=== PATIENT | male | born 1965 | race African-American/Black ===

== ENCOUNTER 2018-05-31 14:29 | Emergency (ER) | payer MEDICAID ==
[~2018-05-31] VITALS: Ht 190.5 cm; Wt 129.3 kg
[2018-05-31 14:31] VITALS: Ht 190.5 cm; Wt 129.3 kg
[2018-05-31] MEDS ORDERED: COUMADIN7.5 MG PO (14:34)
[2018-05-31] MEDS ORDERED: LOVENOX150 MG/ML SQ (14:36)
[2018-05-31] MEDS ORDERED: APAP325 MG PO (14:36)
[2018-05-31] MEDS ORDERED: HYDROCODON-ACET15 ML PO (14:37)
[2018-05-31 15:23] LABS: BASOPHILS 0.3 % (0-2); HEMATOCRIT 32.4 % (42.0-54.0); HEMOGLOBIN 10.6 g/dL (13.5-17.5); IMMATURE GRANULOCYTES 0.3 % (0-5); LYMPHOCYTES 12.1 % (15-50); MCH 29.6 pg (26.0-34.0); MCHC 32.7 g/dL (31.0-37.0); MCV 90.5 fL (80.0-100.0); MEAN PLATELET VOLUME 9.4 fL (7.4-10.4); MONOCYTES 12.3 % (2-11); PLATELET COUNT 239 10x3/uL (130-400); RBC 3.58 10x6/uL (4.20-6.10)
[2018-05-31 15:41] LABS: ALBUMIN 3.1 g/dL (3.4-5.0); ALKALINE PHOSPHATASE 54 U/L (46-116); ALT (SGPT) 14 U/L (10-68); BILIRUBIN - TOTAL 0.75 mg/dL (0.2-1.3); CALC OSMOLALITY 268 mosm/kg (275-300); CARBON DIOXIDE 30.1 mmol/L (21.0-32.0); CHLORIDE - SERUM 97 mmol/L (98-107); GLUCOSE 112 mg/dL (74-106); POTASSIUM - SERUM 4.4 mmol/L (3.5-5.1); PROTEIN - SERUM 8.2 g/dL (6.4-8.2); SODIUM 134 mmol/L (136-145); UREA NITROGEN 12 mg/dL (7-18); eGFR NON AFRICAN AMERICAN 83 mL/min (90-120)
[2018-05-31 16:18] LABS: INR 1.46 (0.85-1.17)
[2018-05-31 16:21] LABS: APTT 38.8 SECONDS (22.8-39.4)
[2018-05-31] MEDS ORDERED: NORCO 7.5/325 T1 TA1 PO (16:42)
[2018-05-31 17:03] VITALS: BP 123/70
[2018-06-22 02:51] VITALS: Ht 190.5 cm; Wt 129.3 kg
== END 2018-05-31 17:05 | disposition home or self-care (01) ==
LOC: D.ER 14:29
PROVIDERS: Family Medicine
DX: I82.402 Acute embolism and thrombosis of unspecified deep veins of left lower extremity (principal); Z79.01 Long term (current) use of anticoagulants; R22.42 Localized swelling, mass and lump, left lower limb

== ENCOUNTER 2018-06-21 17:01 | Observation (INO) | payer MEDICAID ==
[~2018-06-21] VITALS: Ht 190.5 cm; Wt 120.5 kg
--- NOTE | ~2018-06-21 | HP ---
PATIENT: MARYJO GARCIA MEDICAL RECORD: [id number] ACCOUNT: [id number] LOCATION:D.MS [id number] : 61 ADMISSION DATE: 06/21/18 HISTORY AND PHYSICAL EXAMINATION DATE OF ADMISSION: 06/21/2018. CHIEF COMPLAINT: Pain and swelling in the left leg. HISTORY OF PRESENT ILLNESS: This is a 52-year-old -Spanish male who was admitted at [facility] from 05/28/2018 through 05/30/2018 with same symptoms. He was diagnosed with a left lower extremity DVT then. He had been on a road trip to [place] and 2 weeks later was in the hospital with his blood clot. There was no history of cancers. He states he had some sort of blood clot years ago, but I do not think he was ever on Coumadin for that. His workup at [facility] showed a normal protein C, protein S, antithrombin III, homocysteine, prothrombin gene analysis, factor V Leiden, and cardiolipin. When I saw him initially in my office earlier this month his INR was over 4. He was on 7.5 mg of Coumadin every day. I lowered the dose. He came back in last week and his INR was down to 1.6 to 1.7 range. I increased his Coumadin. It was at 1.8 yesterday and then he came to the hospital last night. The venous Doppler ultrasound does show extensive left lower extremity deep vein thrombosis. There is no comparison film as the other one was done at [facility]. He is admitted. PAST MEDICAL HISTORY: He has had elevated blood pressure in the past. PAST SURGICAL HISTORY: None. SOCIAL HISTORY: He is . He is a self-employed electrician telephone. DRUG ALLERGIES: None known. HOME MEDICATIONS: Hydrocodone 7.5/325 p.r.n. pain, warfarin 7.5 mg alternating with 5 mg. FAMILY HISTORY: Father with hypertension and arthritis. Mother with hypertension. HABITS: No tobacco, alcohol or drugs. REVIEW OF SYSTEMS: GENERAL: No major weight changes. HEENT: No particular sinus or allergy problems. RESPIRATORY: No shortness of breath, cough. No COPD or asthma. CARDIAC: No history of chest pain, palpitations or heart disease. GASTROINTESTINAL: No diarrhea, constipation or reflux. GENITOURINARY: No significant problems there. MUSCULOSKELETAL: Has left leg pain. NEUROLOGIC: No headaches or seizures. PSYCHIATRIC: Denies depression or melancholia. PHYSICAL EXAMINATION: VITAL SIGNS: Temperature 98.8, pulse 94, respirations 18, blood pressure 132/75, O2 sat 98%. HISTORY AND PHYSICAL [id number] MARYJO GARCIA GENERAL: He is awake and alert, in no acute distress, but complaining of pain in the left lower extremity. HEART: Regular rate and rhythm. LUNGS: Clear. ABDOMEN: Soft. EXTREMITIES: He has tenderness to palpation in the left thigh, which he had on exam with me about a week ago in my office. He has generalized swelling in the left leg. LABORATORY DATA: CBC with a white count of 8800, hemoglobin 9.0, hematocrit 28.0, platelets are little high at 442,000. D-dimer is elevated at 4.07. Basic metabolic panel is fine. Liver enzymes were fine. Total protein 9.0. INR 1.68 here. The ultrasound of the left lower extremity shows extensive DVT. ASSESSMENT: DVT, on Coumadin, subtherapeutic. PLAN: He is given Lovenox. We will check MTHFR and PSA. We will probably swab to Eliquis. Other tests or procedures as warranted. TRANSINT:[id number] Voice Confirmation ID: [id number] DOCUMENT ID: [id number] OBDULIO ADKINS MD at 0900 CC: [id number] DICTATION DATE: 06/22/18914 MUSIC THEORY PROFESSOR: 06/22/18 1109 ADM IN [facility] [address] [place] [address]
[~2018-06-21 17:01] MED LIST: APAP325 MG PO; COUMADIN7.5 MG PO; HYDROCODON-ACET15 ML PO; LOVENOX150 MG/ML SQ; NORCO 7.5/325 T1 TA1 PO
[2018-06-21 18:29] LABS: BASOPHILS 0.1 % (0-2); EOSINOPHILS 3.2 % (0-7); IMMATURE GRANULOCYTES 0.3 % (0-5); LYMPHOCYTES 12.5 % (15-50); MCH 28.2 pg (26.0-34.0); MCHC 32.1 g/dL (31.0-37.0); MCV 87.8 fL (80.0-100.0); MONOCYTES 10.3 % (2-11); NEUTROPHILS 73.6 % (40-80); RBC 3.19 10x6/uL (4.20-6.10); RDW 13.4 % (11.5-14.5); WBC 8.8 10x3/uL (4.8-10.8)
[2018-06-21 18:30] LABS: PLATELET COUNT 442 10x3/uL (130-400)
[2018-06-21 18:57] LABS: ALBUMIN 2.8 g/dL (3.4-5.0); ALKALINE PHOSPHATASE 56 U/L (46-116); ALT (SGPT) 19 U/L (10-68); BILIRUBIN - TOTAL 0.45 mg/dL (0.2-1.3); CALC OSMOLALITY 267 mosm/kg (275-300); CALCIUM 8.8 mg/dL (8.5-10.1); CARBON DIOXIDE 29.2 mmol/L (21.0-32.0); CHLORIDE - SERUM 97 mmol/L (98-107); GLUCOSE 109 mg/dL (74-106); POTASSIUM - SERUM 4.3 mmol/L (3.5-5.1); SODIUM 134 mmol/L (136-145); UREA NITROGEN 11 mg/dL (7-18); eGFR NON AFRICAN AMERICAN 83 mL/min (90-120)
[2018-06-21 19:03] LABS: PRO BNP 45 pg/mL (0-125)
[2018-06-21 21:07] LABS: INR 1.68 (0.85-1.17); PROTIME 19.3 SECONDS (11.6-15.0)
[2018-06-22] MEDS ORDERED: ULTRAM50 MG PO (00:29)
[2018-06-22 02:51] VITALS: Ht 190.5 cm; Wt 120.5 kg
[2018-06-22 12:43] VITALS: BP 131/80
[2018-06-22 20:36] VITALS: BP 154/83
[2018-06-23 01:08] VITALS: BP 110/70
[2018-06-23 04:56] VITALS: BP 126/68
[2018-06-23 08:46] VITALS: BP 128/80
[2018-06-23] MEDS ORDERED: ELIQUIS5 MG PO (17:52)
[2018-06-23] MEDS ORDERED: HYDROCODONE-APA1 TAB PO (18:00)
== END 2018-06-23 20:10 | disposition home or self-care (01) ==
LOC: D.ER 17:01 → D.EDHOLD 21:34 → OBSVTIME 21:34 → D.MS 21:34
PROVIDERS: Emergency Medicine; Family Medicine
DX: I82.402 Acute embolism and thrombosis of unspecified deep veins of left lower extremity (principal); D64.9 Anemia, unspecified; M79.605 Pain in left leg; M79.89 Other specified soft tissue disorders

== ENCOUNTER → 2019-02-02 09:55 | Outpatient (CLI) | payer MEDICAID ==
[2018-06-22 02:51] VITALS: BMI 33.1
[~2019-02-02 09:55] MED LIST changes: +ELIQUIS5 MG PO; +HYDROCODONE-APA1 TAB PO; +ULTRAM50 MG PO
== END | disposition home or self-care (01) ==
LOC: D.US 09:55
PROVIDERS: ATTEND Family Medicine
DX: R60.0 Localized edema (principal); Z86.718 Personal history of other venous thrombosis and embolism

== ENCOUNTER 2019-03-15 05:58 | Outpatient (CLI) | payer MEDICAID ==
[~2019-03-15] VITALS: Ht 190.5 cm; Wt 120.5 kg
--- NOTE | ~2019-03-15 | HEMODYNAMI ---
PATIENT:MARYJO GARCIA MEDICAL RECORD: [id number] : 61 LOCATION:[facility]# [id number] ADMISSION DATE: 03/15/19 Generatedon:03/15/201911:04 Patient name: MARYJO GARCIA Patient #: [id number] SSN: DO B: 1965 Date of study: 03/15/2019 Page: Of Hemodynamic Procedure Report Patient Data Patient Demographics Procedure consent was obtained First Name: MARYJO Gender: Male Last Name: RADHA : 1965 Patient #: [id number] Age: 53 year(s) Race: Black Additional ID: [id number] Contact details [address]: [address] [place] [address] DRIVE State: [place] City: [place] Zip code: [address] Past Medical History Allergies: No known allergies Admission Admission Data Admission Date: 03/15/2019 Admission Time: 5:58 Procedure Procedure Types Cath Procedure Peripheral Cath Diagnostic Procedure Venography Procedure Description Procedure Date Procedure Date: 03/15/2019 Procedure Start Time: 10:07 Procedure Staff Name Function Edwardo Granados RT Monitor Federico Thornton MD Performing Physician Pina Urrutia RN Nurse MICHAEL ALAS RT Scrub Procedure Data Cath Procedure Fluoroscopy Diagnostic fluoroscopy Total fluoroscopy Time: time: 13.1 min 13.1 min Diagnostic fluoroscopy Total fluoroscopy dose: dose: 1676 mGy 1676 mGy Contrast Material Contrast Material Type Amount (ml) Isovue 300 135 Procedure Medications Medication Administration Route Dosage Fentanyl I.V. 50 mcg Versed I.V. 1 mg Versed I.V. 1 mg Fentanyl I.V. 50 mcg Fentanyl I.V. 50 mcg Versed I.V. 1 mg Fentanyl I.V. 50 mcg Versed I.V. 1 mg Fentanyl I.V. 50 mcg Versed I.V. 1 mg Fentanyl I.V. 50 mcg Versed I.V. 1 mg Fentanyl I.V. 50 mcg Versed I.V. 1 mg Versed I.V. 1 mg Fentanyl I.V. 50 mcg Heparin Flush Bag added to field 23 bags (1000units/500ml NS) Lidocaine 1% added to field 20 Heparin Bolus 5000 units Versed I.V. 1 mg Fentanyl I.V. 50 mcg Hemodynamics Rest Heart Rate: 73 (bpm) Snapshots Pre Cath Intra NCS Post Cath Vital Signs Time Heart Resp SPO2 etCO2 NIBP (mmHg) Rhythm Pain Sedation Rate (ipm) (%) (mmHg) Status Level (bpm) 8:42:03 57 16 99 35.8 149/96(125) NSR 0 (11) 10(A) , No pain 8:46:29 52 15 99 35.1 147/91(115) NSR 0 (11) 8(A) , No pain 8:50:55 58 14 98 36.6 156/93(118) NSR 0 (11) 8(A) , No pain 8:55:23 66 14 96 37.3 147/94(107) NSR 0 (11) 8(A) , No pain 8:59:58 64 11 94 42.6 161/86(128) NSR 0 (11) 8(A) , No pain 9:04:34 64 11 94 47.8 151/87(112) NSR 0 (11) 8(A) , No pain 9:09:01 69 11 90 50 158/119(126) NSR 0 (11) 8(A) , No pain 9:14:00 73 11 93 49.3 Measuring NSR 0 (11) 8(A) , No pain 9:14:47 76 10 93 50.8 155/87(131) NSR 0 (11) 8(A) , No pain 9:19:09 68 11 97 41.1 139/81(90) NSR 0 (11) 8(A) , No pain 9:24:08 74 11 92 44.8 Measuring NSR 0 (11) 8(A) , No pain 9:24:37 75 11 93 40.3 157/99(120) NSR 0 (11) 8(A) , No pain 9:28:59 72 12 95 42.6 145/91(109) NSR 0 (11) 8(A) , No pain 9:33:21 72 13 96 43.3 144/93(120) NSR 0 (11) 8(A) , No pain 9:37:45 80 12 96 28.4 144/89(112) NSR 0 (11) 8(A) , No pain 9:42:11 68 13 96 38.8 148/94(116) NSR 0 (11) 8(A) , No pain 9:46:11 66 16 96 37.3 146/92(0) NSR 0 (11) 8(A) , No pain 9:50:11 67 21 99 32.1 No Cuff NSR 0 (11) 8(A) , No pain 9:54:41 66 11 100 35.8 136/86(107) NSR 0 (11) 8(A) , No pain 9:59:05 57 14 100 36.6 134/76(112) NSR 0 (11) 8(A) , No pain 10:03:27 64 12 100 38.8 130/84(92) NSR 0 (11) 8(A) , No pain 10:07:52 65 13 96 37.3 135/76(95) NSR 0 (11) 8(A) , No pain 10:12:16 62 11 100 33.6 138/91(103) NSR 0 (11) 8(A) , No pain 10:16:46 64 11 98 44.8 156/86(122) NSR 0 (11) 8(A) , No pain 10:21:21 66 10 85 31.4 170/108(147) NSR 0 (11) 8(A) , No pain 10:22:53 72 12 84 24.6 165/87(140) NSR 0 (11) 8(A) , No pain 10:27:36 67 11 83 39.6 144/80(112) NSR 0 (11) 8(A) , No pain 10:32:04 71 13 83 20.2 140/87(103) NSR 0 (11) 8(A) , No pain 10:36:30 67 13 81 16.4 144/85(109) NSR 0 (11) 8(A) , No pain 10:41:01 65 14 98 17.2 145/85(114) NSR 0 (11) 8(A) , No pain 10:45:33 71 12 99 20.9 137/79(110) NSR 0 (11) 8(A) , No pain 10:50:01 67 13 97 14.9 138/80(124) NSR 0 (11) 8(A) , No pain 10:54:26 64 11 97 35.2 144/85(112) NSR 0 (11) 8(A) , No pain 10:58:25 31.4 No Cuff NSR 0 (11) 8(A) , No pain Medications Time Medication Route Dose Verified Delivered Reason Notes Eff ectiveness by by 8:39:00 Lidocaine 1% added 20ml Federico Caballero for local to vial Hillary Thornton MD anesthetic field STROUD 8:40:09 Heparin Flush added 23bags Federico Caballero used for Bag to Hillary Thornton MD procedure (1000units/500ml field STROUD NS) 8:43:20 Fentanyl I.V. 50 mcg Federico Pina for Renan Thornton RN sedation 8:43:35 Versed I.V. 1 mg Federico Pina for Renan Thornton RN sedation 8:45:12 Fentanyl I.V. 50 mcg Federico Pina for Jeramy Thorntoner RN sedation 8:46:31 Versed I.V. 1 mg Federico Pina for Renan Thornton RN sedation 8:54:58 Versed I.V. 1 mg Federico Pina for Jeramy Thorntoner RN sedation 8:55:10 Fentanyl I.V. 50 mcg Federico Pina for Renan Thornton RN sedation 9:05:11 Fentanyl I.V. 50 mcg Federico Pina for Jeramy Thorntoner RN sedation 9:05:22 Versed I.V. 1 mg Federico Pina for Jeramy Thorntoner RN sedation 9:18:42 Fentanyl I.V. 50 mcg Federico Pina for BurdJeramy hurleyer RN sedation 9:18:52 Versed I.V. 1 mg Federico Pina for BurdJeramy hurleyer RN sedation 9:59:07 Fentanyl I.V. 50 mcg Federico Pina for MalickaJeramyer RN sedation 9:59:17 Versed I.V. 1 mg Federico Pina for BurdJeramy hurleyer RN sedation 10:06:54 Fentanyl I.V. 50 mcg Federico Pina for Jeramy Thorntoner RN sedation 10:07:05 Versed I.V. 1 mg Federico Pina for Jeramy Thorntoner RN sedation 10:15:14 Versed I.V. 1 mg Federico Pina for Renan Thornton RN sedation 10:16:32 Fentanyl I.V. 50 mcg Federico Padillai for Renan Thornton RN sedation 10:29:59 Heparin Bolus 5000 Federico Pina units Renan Thornton RN, MD 10:38:05 Versed I.V. 1 mg Federico Pina for Renan Thornton RN sedation 10:38:13 Fentanyl I.V. 50 mcg Federico Pina for Renan Thornton RN sedation Procedure Log Time Note 8:14:59 Edwardo Darwin RT (R) (CV) sent for patient. Start room use. 8:15:08 Time tracking: Regular hours (M-F 7:00 - 5:00) 8:15:13 Plan of Care:Hemodynamics will remain stable., Cardiac rhythm will remain stable., Comfort level will be maintained., Respiratory function will remain adequate., Patient/ family verbilizes understanding of procedure., Procedure tolerated without complication., Recovers from procedure without complications.. 8:15:21 Patient received from Outpatients to IR Alert and oriented. Tansferred to table in Prone position. 8:15:22 Correct patient and procedure confirmed by team. 8:15:24 Signed procedure consent form obtained from patient. 8:15:25 ECG and BP/O2 sat monitors applied to patient. 8:15:26 Full Disclosure recording started 8:15:28 - 8:15:30 - 8:15:34 H&P Date Dictated: 03/15/2019 H&P Addendum completed by physician on day of procedure. (MUST COMPLETE FOR ALL OUTPATIENTS). 8:15:36 Pre-op teaching completed and patient verbalized understanding. 8:15:36 Pre-procedure instructions explained to patient. 8:15:39 Family in waiting room. 8:15:41 Patient NPO since Midnight. 8:16:04 Patient allergic to No known allergies 8:16:10 Is the patient allergic to Iodine/contrast media? No. 8:16:18 Is patient on blood thinner?Yes 8:16:23 ACC The patient was administered the following blood thiners within the last 24 hours: ACCLovenox 8:16:27 Patient diabetic? No. 8:16:29 - 8:16:30 ----Pre-sedation anethsthesia assessment.---- 8:16:32 Previous problem with sedation/anesthesia? No ? 8:16:34 Snore? Yes 8:16:35 Sleep apnea? No 8:16:37 Deviated septum? No 8:16:39 Opens mouth fully? Yes 8:16:41 Sticks out tongue? Yes 8:16:44 Airway obstruction? No ? 8:16:47 Dentures? No ? 8:16:54 Patient pain scale 0/10 no pain. 8:17:23 IV patent on arrival in left hand with 0.45%NaCl at O. 8:17:25 Sharps counted by scrub and verified by R.N. 8:17:27 Alarms reviewed by R. N. 8:17:35 Left Knee was prepped with chlora-prep and draped in sterile fashion. 8:17:39 Use device set IR Diagnostic 8:17:41 Sterile Angiographic Pack opened to sterile field. 8:17:41 Bag Decanter (2001S) opened to sterile field. 8:17:42 Tegaderm 4 x 4 (1626W) opened to sterile field. 8:36:14 DOC .035 wire (L89607) opened to sterile field. 8:38:29 Physician arrived 8:38:30 --------ALL STOP TIME OUT------ 8:38:31 Final Timeout: patient, procedure, and site verified with staff and physician. All members of the team are in agreement. 8:38:43 Popliteal region site verified by team. 8:38:49 Maximum allowable Isovue 300 dose 300ml. Physician notified. (300ml for normal creatinines. For patients with creatinine of 1.7 or higher multiply weight(kg) x 5 divided by creatinine.) 8:38:54 Fire Safety Assessment: A--An alcohol-based skin anteseptic being used preoperatively., C--Open oxygen or nitrous oxide is being used. 8:39:00 Lidocaine 1% 20ml vial added to field was administered by Federico Thornton MD; for local anesthetic; 8:39:01 Sedation plan: IV Moderate Sedation Medication:Versed, Fentanyl 8:40:08 Procedure started. 8:40:09 Heparin Flush Bag (1000units/500ml NS) 23bags added to field was administered by Federico Thornton MD; used for procedure; 8:40:16 Local anesthetic to Left Knee with Lidocaine 1% by Federico Thornton MD.ADDITIONAL ACCESS 8:40:21 Micropuncture VSI 4FR kit opened to sterile field. 8:40:21 GLIDE CATHETER 5FR ANGLED 65cm (CG507) opened to sterile field. 8:40:23 Cordis 6Fr BRITE TIP 11cm sheath opened to sterile field. 8:40:42 Vital chart was started 8:41:44 Baseline sample Acquired. 8:43:20 Fentanyl 50 mcg I.V. was administered by Pina Urrutia RN; for sedation; 8:43:35 Versed 1 mg I.V. was administered by Pina Urrutia RN; for sedation; 8:45:12 Fentanyl 50 mcg I.V. was administered by Pina Urrutia RN; for sedation; 8:46:31 Versed 1 mg I.V. was administered by Pina Urrutia RN; for sedation; 8:54:58 Versed 1 mg I.V. was administered by Pina Urrutia RN; for sedation; 8:55:10 Fentanyl 50 mcg I.V. was administered by Pina Urrutia RN; for sedation; 9:02:09 NITINOL .018 80cm wire ([id number]) opened to sterile field. 9:05:11 Fentanyl 50 mcg I.V. was administered by Pina Urrutia RN; for sedation; 9:05:22 Versed 1 mg I.V. was administered by Pina Urrutia RN; for sedation; 9:18:42 Fentanyl 50 mcg I.V. was administered by Pina Urrutia RN; for sedation; 9:18:52 Versed 1 mg I.V. was administered by Pina Urrutia RN; for sedation; 9:26:31 GLIDE WIRE ANGLE 180cm (OC6324) opened to sterile field. 9:26:41 TORQUE DEVICE PLASTIC .038 ( TD01) opened to sterile field. 9:27:22 ROADRUNNER .035 260 glide wire (L38011) opened to sterile field. 9:33:57 decision made to abort procedure and place pt on back and stick his right jugular vein 9:57:10 Right neck area was prepped with chlora-prep and draped in sterile fashion 9:59:07 Fentanyl 50 mcg I.V. was administered by Pina Urrutia RN; for sedation; 9:59:17 Versed 1 mg I.V. was administered by Pina Urrutia RN; for sedation; 10:06:54 Fentanyl 50 mcg I.V. was administered by Pina Urrutia RN; for sedation; 10:07:05 Versed 1 mg I.V. was administered by Pina Urrutia RN; for sedation; 10:07:55 Local anesthetic to right IJ vein with Lidocaine 1% by Federico Thornton MD.INITIAL ACCESS ONLY 10:13:18 GLIDE CATHETER 5FR ANGLED 100cm (CG508) opened to sterile field. 10:15:14 Versed 1 mg I.V. was administered by Pina Urrutia RN; for sedation; 10:16:32 Fentanyl 50 mcg I.V. was administered by Pina Urrutia RN; for sedation; 10:18:09 CHILEL 260 wire (G05275) opened to sterile field. 10:18:18 COOK SHEATH 6FR RAABE 70CM (J88242) opened to sterile field. 10:27:58 CXI SUPPORT .035 135 CM STR catheter (E38984) opened to sterile field. 10:28:00 GLIDE WIRE MERIT Angled 260cm ([id number]) opened to sterile field. 10:29:59 Heparin Bolus 5000 units was administered by Pina Urrutia RN; ; 10:36:40 INFLATOR BasixTOUCH (KJ3932) opened to sterile field. 10:38:05 Versed 1 mg I.V. was administered by Pina Urrutia RN; for sedation; 10:38:13 Fentanyl 50 mcg I.V. was administered by Pina Urrutia RN; for sedation; 10:38:53 Inflate balloon Inflation number: 1 A Evercross 6 x 6 x 135 Balloon ([id number]) was prepped and advanced across the Distal Common Femoral, Left, then inflated to 8 MARIOLA for 0:55 (min:sec). 10:43:05 Inflate balloon Inflation number: 2 A Evercross 8 x 6 x 135 Balloon ([id number]) was prepped and advanced across the Distal Common Femoral, Left, then inflated to 7 MARIOLA for 1:48 (min:sec). 10:48:07 Procedure ended.(Physican Out) 10:48:19 Fluoroscopy time 13.10 minutes. 10:48:24 Fluoroscopy dose: 1676 mGy 10:48:24 Flurop Dose total: 1676 10:50:30 Contrast amount:Isovue 300 135ml. 10:50:31 Sharps counted by scrub and verified by R.N. 10:50:33 Insertion/operative site no bleeding no hematoma. 10:50:39 Post-op/insertion site Right Jugular vein dressed using a 4 x 4 and Tegaderm. 10:50:43 Post-op/insertion site Left Popliteal dressed using a 4 x 4 and Tegaderm. 10:50:48 Post right IJ vein:stable 10:50:57 Post Left Knee:stable 10:50:58 Post Procedure Pulses reassessed and unchanged 10:50:59 Post procedure instruction explained to patient.Patient verbalizes understanding. 10:51:02 Procedure and supply charges have been captured, reviewed, submitted an d are correct. 10:58:28 Vital chart was stopped 11:02:17 Report given to Outpatients. 11:02:21 Patient transfered to Outpatients with Stretcher. 11:02:57 Full Disclosure recording stopped Intervention Summary Intervention Notes Time ActionType Lesion and Equipment Used Action# Pressure Duration Attributes 10:38:53 Inflate Distal Evercross 6 x 6 1 8 00:55 balloon Common x 135 Balloon Femoral, ([id number]) Left 10:43:05 Inflate Distal Evercross 8 x 6 2 7 01:48 balloon Common x 135 Balloon Femoral, ([id number]) Left Device Usage Item Name Manufacture Quantity Catalog Number Hospital Part Current M inimal Lot# / Charge Number Stock Stock Serial# Code Bag Decanter Microtek 1 [id number] 95984 158812 5 () Medical Inc. Sterile Cardinal 1 [id number] 281115 989452 5 Angiographic Health Pack Tegaderm 4 x 4 3M 1 1626W 745645 292139 183428 5 (1626W) DOC .035 wire Cook Medical 1 [id number] 227335 509699 5 (S20832) GLIDE CATHETER Terumo 1 CG507 964299 053391 5 5FR ANGLED 65cm (CG507) Micropuncture VSI VASCULAR 1 7266V 322263 373836 5 VSI 4FR kit SOLUTIONS Cordis 6Fr Cardinal 1 [id number] 847829 198856 5 BRITE TIP 11cm Health sheath NITINOL .018 Medtronic 1 [id number] 734572 343122 5 [id number] 80cm wire ([id number]) GLIDE WIRE Terumo 1 CZ4250 157035 078126 602437 5 ANGLE 180cm (IZ9182) TORQUE DEVICE Wyatt 1 TD01 490627 311725 333417 5 PLASTIC .038 ( Scientific TD01) ROADRUNNER .035 [employer] 1 M00336 737552 498694 597110 5 [id number] 260 glide wire (Z44194) GLIDE CATHETER Terumo 1 CG508 269493 26174 480295 4 5FR ANGLED 100cm (CG508) CHILEL 260 wire [employer] 1 W12891 954678 13251 317865 5 [id number] (T13675) COOK SHEATH 6FR [employer] 1 S62840 585147 00788 650389 1 [id number] RAABE 70CM (A45994) CXI SUPPORT [employer] 1 P48139 706376 689683 092306 5 [id number] .035 135 CM STR catheter (J43662) GLIDE WIRE Merit 1 [id number] 585026 631783 934225 5 [id number] [facility] 260cm ([id number]) INFLATOR Merit 1 [id number] 694722 179065 942169 5 BasixTOSincroPool Medical (SD4839) Evercross 6 x 6 Medtronic 1 [id number] 550503 236757 5 [id number] x 135 Balloon ([id number]) Evercross 8 x 6 Medtronic 1 [id number] 164390 183189 961643 5 [id number] x 135 Balloon ([id number]) Signature Audit [place] Stage Time Signature Unsigned Intra-Procedure 03/15/2019 Edwardo Brooke Shuffield RT 11:02:48 AM Shuffield RT (R) (CV) 03/15/2019 (R) (CV) 11:03:52 AM Intra-Procedure 03/15/2019 Edwardo 11:04:05 AM Shuffield RT (R) (CV) Signatures Monitor : Edwardo Signature : Patrickield RT Date : Time : [place] [id number] [facility] [place] [address]
[2019-03-15 06:17] LABS: BASOPHILS 0.2 % (0-2); EOSINOPHILS 3.7 % (0-7); HEMATOCRIT 37.6 % (42.0-54.0); HEMOGLOBIN 12.3 g/dL (13.5-17.5); IMMATURE GRANULOCYTES 0.2 % (0-5); LYMPHOCYTES 35.4 % (15-50); MCH 30.2 pg (26.0-34.0); MCHC 32.7 g/dL (31.0-37.0); MCV 92.4 fL (80.0-100.0); MEAN PLATELET VOLUME 9.3 fL (7.4-10.4); MONOCYTES 10.5 % (2-11); RBC 4.07 10x6/uL (4.20-6.10); RDW 13.2 % (11.5-14.5); WBC 4.3 10x3/uL (4.8-10.8)
[2019-03-15 06:19] LABS: PLATELET COUNT 263 10x3/uL (130-400)
[2019-03-15 06:30] LABS: CALC OSMOLALITY 279 mosm/kg (275-300); CALCIUM 8.7 mg/dL (8.5-10.1); CARBON DIOXIDE 27.7 mmol/L (21.0-32.0); CHLORIDE - SERUM 104 mmol/L (98-107); GLUCOSE 108 mg/dL (74-106); SODIUM 140 mmol/L (136-145); UREA NITROGEN 12 mg/dL (7-18); eGFR NON AFRICAN AMERICAN 82 mL/min (90-120)
[2019-03-15 06:36] LABS: APTT 30.7 SECONDS (22.8-39.4); INR 1.14 (0.85-1.17); PROTIME 14.1 SECONDS (11.6-15.0)
[2019-03-15 07:10] VITALS: BP 144/78; Ht 190.5 cm; Wt 120.5 kg
[2019-03-15] MEDS ORDERED: LOVENOX40 MG/0.4 SC (07:49)
--- NOTE | 2019-03-15 15:17 | NUR ---
6600 ALL DISCHARGE INSTRUCTIONS GIVEN. VOICES UNDERSTANDING. FOLLOW UP APPOINTMENT GIVEN. VOICES NO OTHER NEEDS. TAKEN DOWN IN W/C. ADVISED TO CALL OR COME BACK IF ANY PROBLEMS.
== END 2019-03-15 14:45 | disposition home or self-care (01) ==
LOC: D.SP 05:58 → D.RAD 08:00 → D.SP 14:45
PROVIDERS: ATTEND General Practice
DX: I82.512 Chronic embolism and thrombosis of left femoral vein (principal); I82.532 Chronic embolism and thrombosis of left popliteal vein; Z01.812 Encounter for preprocedural laboratory examination